=== PATIENT | male | born 1955 | race Caucasian/White ===

== ENCOUNTER → 2017-10-25 | Outpatient (CLI) | payer OTHER ==
[~2017-10-25] MED LIST: OMNIPAQUE 350 MG/ML, 100ML BOTTLE ONE
== END | disposition home or self-care (01) ==
LOC: CFH 08:32
PROVIDERS: ATTEND Internal Medicine
DX: K57.30 Diverticulosis of large intestine without perforation or abscess without bleeding (principal); N40.0 Benign prostatic hyperplasia without lower urinary tract symptoms; I70.0 Atherosclerosis of aorta
CPT/HCPCS: 74177; Q9967

== ENCOUNTER 2018-07-24 22:44 | Emergency (ER) | payer OTHER ==
[~2018-07-24] VITALS: Ht 172.7 cm; Wt 92.5 kg
[2018-07-24 23:29] LABS: BASOPHILS % (AUTO) 0 % (0-1); EOSINOPHILS # (AUTO) 0.13 x10^3/uL (0-0.4); EOSINOPHILS % (AUTO) 2 % (1-7); LYMPHOCYTES # (AUTO) 1.56 x10^3/uL (1-3.4); LYMPHOCYTES % (AUTO) 23 % (22-44); MD NO; MEAN CORPUSCULAR HEMOGLOBIN 32.3 pg (27.5-34.5); MEAN CORPUSCULAR HGB CONC 34.3 g/dL (33.2-36.2); MEAN CORPUSCULAR VOLUME 94.1 fL (81-97); MEAN PLATELET VOLUME 9.1 fL (7.4-10.4); MONOCYTES # (AUTO) 0.73 x10^3/uL (0.2-0.8); MONOCYTES % (AUTO) 11 % (2-9); NEUTROPHILS # (AUTO) 4.48 x10^3/uL (1.8-6.8); NEUTROPHILS % (AUTO) 65 % (42-75); PLATELET COUNT 229 x10^3/uL (130-400); RED BLOOD COUNT 4.92 x10^6/uL (4.38-5.82); RED CELL DISTRIBUTION WIDTH 13.8 % (9.4-14.8)
[2018-07-24] MEDS ORDERED: ONDANSETRON ODT 4 MG PO ONE (23:30)
[2018-07-24 23:41] LABS: ALANINE AMINOTRANSFERASE 32 U/L (12-78); ALBUMIN 3.7 g/dL (3.4-5.0); ANION GAP 9 mmol/L (5-15); CALCIUM 8.8 mg/dL (8.5-10.1); CHLORIDE 97 mmol/L (98-107); CREATININE 1.03 mg/dL (0.7-1.3)
[2018-07-24 23:46] LABS: ALKALINE PHOSPHATASE 61 U/L (45-117); BILIRUBIN,TOTAL 0.6 mg/dL (0.2-1.0); TOTAL PROTEIN 7.7 g/dL (6.4-8.2); TROPONIN I < 0.015 ng/mL (0.000-0.045)
[2018-07-25 00:05] LABS: MICROSCOPIC AUTO
[2018-07-25] MEDS ORDERED: OMNIPAQUE 350 MG/ML, 100ML BOTTLE ONE (00:06)
[2018-07-25 00:15] LABS: CULTURE INDICATED? NO
[2018-07-25] MEDS ORDERED: ONDANSETRON ODT 4 MG ONE (01:23)
[2018-07-25] MEDS ORDERED: ACETAMINOPHEN 500 MG TABLET ONE (01:53)
[2018-07-25] MEDS ORDERED: ONDANSETRON ODT 4 MG PO ONE (02:00)
[2018-07-25] MEDS ORDERED: ACETAMINOPHEN 500 MG TABLET PO ONE (02:00)
[2018-07-25 02:32] VITALS: BP 137/61
== END 2018-07-25 02:47 | disposition home or self-care (01) ==
LOC: ED 07-25 00:59
DX: R10.32 Left lower quadrant pain (principal); E78.00 Pure hypercholesterolemia, unspecified; I10 Essential (primary) hypertension; E10.8 Type 1 diabetes mellitus with unspecified complications
CPT/HCPCS: 36415; 74177; 80053; 81001; 83690; 84484; 85025; 93005; 99285; Q0162; Q9967

== ENCOUNTER → 2018-07-24 | Outpatient (CLI) | payer OTHER ==
[~2018-07-24] MED LIST changes: -OMNIPAQUE 350 MG/ML, 100ML BOTTLE ONE; +REGADENOSON 0.4 MG/5 ML SYRINGE ONE
== END | disposition home or self-care (01) ==
LOC: CFH 08:06
PROVIDERS: ATTEND Internal Medicine
DX: I49.3 Ventricular premature depolarization (principal)
CPT/HCPCS: 78452; 93017; A9502; J2785

== ENCOUNTER → 2018-08-05 | Outpatient (CLI) | payer OTHER ==
[~2018-08-05] MED LIST changes: +ASPI-496 PO; +CARV6.252 PO; +FEXO180T72 PO; +INSU100C SQ-INSULIN; +IRBE300T16 PO; +ISOS30TA8 PO; +MULT-717 PO; +OMEG-123 PO; +RANI150C PO; -REGADENOSON 0.4 MG/5 ML SYRINGE ONE; +ROSU10TA PO; +SIMV40TA3 PO
== END | disposition home or self-care (01) ==
LOC: CVU 13:58
PROVIDERS: ATTEND Internal Medicine Cardiovascular Disease
DX: I65.23 Occlusion and stenosis of bilateral carotid arteries (principal); I35.1 Nonrheumatic aortic (valve) insufficiency; I35.8 Other nonrheumatic aortic valve disorders; G45.9 Transient cerebral ischemic attack, unspecified; I10 Essential (primary) hypertension; E78.5 Hyperlipidemia, unspecified; E10.8 Type 1 diabetes mellitus with unspecified complications
CPT/HCPCS: 93306; 93880

== ENCOUNTER 2018-08-07 07:47 | Day surgery (SDC) | payer OTHER ==
[~2018-08-07] VITALS: Ht 172.7 cm; Wt 87.7 kg
[2018-08-07 08:25] VITALS: BP 168/71
[2018-08-07] MEDS ORDERED: RANI150C PO (08:41)
[2018-08-07] MEDS ORDERED: MULT-717 PO (08:41)
[2018-08-07] MEDS ORDERED: ROSU10TA PO (08:41)
[2018-08-07] MEDS ORDERED: OMEG-123 PO (08:41)
[2018-08-07] MEDS ORDERED: ASPI-496 PO (08:41)
[2018-08-07] MEDS ORDERED: IRBE300T16 PO (08:41)
[2018-08-07] MEDS ORDERED: FEXO180T72 PO (08:41)
[2018-08-07] MEDS ORDERED: SIMV40TA3 PO (08:41)
[2018-08-07] MEDS ORDERED: CARV6.252 PO (08:41)
[2018-08-07] MEDS ORDERED: INSU100C SQ-INSULIN (08:45)
[2018-08-07] MEDS ORDERED: LIDOCAINE 2%, 10ML ONE (09:47)
[2018-08-07] MEDS ORDERED: FENTANYL PF 100 MCG/2ML ONE (09:47)
[2018-08-07] MEDS ORDERED: MIDAZOLAM 1 MG/ML, 5ML ONE (09:47)
[2018-08-07] MEDS ORDERED: NITROGLYCERIN 5 MG/ML, 10ML ONE (09:48)
[2018-08-07] MEDS ORDERED: ISOS30TA8 PO (14:40)
== END 2018-08-07 15:15 | disposition home or self-care (01) ==
LOC: CACL 07:47
PROVIDERS: ATTEND Internal Medicine Cardiovascular Disease
DX: I25.10 Atherosclerotic heart disease of native coronary artery without angina pectoris (principal); I12.9 Hypertensive chronic kidney disease with stage 1 through stage 4 chronic kidney disease, or unspecified chronic kidney disease; E10.22 Type 1 diabetes mellitus with diabetic chronic kidney disease; N18.2 Chronic kidney disease, stage 2 (mild); E10.40 Type 1 diabetes mellitus with diabetic neuropathy, unspecified; G47.30 Sleep apnea, unspecified; E78.5 Hyperlipidemia, unspecified; Z98.890 Other specified postprocedural states; Z79.82 Long term (current) use of aspirin; Z79.4 Long term (current) use of insulin; Z86.73 Personal history of transient ischemic attack (TIA), and cerebral infarction without residual deficits
CPT/HCPCS: 82962; 93458; 99156; C1760; C1769; C1894; J2250; J3010; J3490; Q9967; J2001

== ENCOUNTER 2018-08-10 10:15 | Emergency (ER) | payer OTHER ==
[~2018-08-10] VITALS: Ht 172.7 cm; Wt 89.7 kg
[2018-08-10] MEDS ORDERED: SODIUM CHLORIDE 0.9% 1,000ML IVBOLUS ONE (11:00)
[2018-08-10 11:20] LABS: BASOPHILS # (AUTO) 0.03 x10^3/uL (0-0.1); BASOPHILS % (AUTO) 1 % (0-1); EOSINOPHILS # (AUTO) 0.08 x10^3/uL (0-0.4); EOSINOPHILS % (AUTO) 1 % (1-7); LYMPHOCYTES # (AUTO) 0.94 x10^3/uL (1-3.4); LYMPHOCYTES % (AUTO) 15 % (22-44); MD NO; MEAN CORPUSCULAR HEMOGLOBIN 31.8 pg (27.5-34.5); MEAN CORPUSCULAR HGB CONC 33.3 g/dL (33.2-36.2); MEAN CORPUSCULAR VOLUME 95.6 fL (81-97); MEAN PLATELET VOLUME 10.2 fL (7.4-10.4); MONOCYTES # (AUTO) 0.45 x10^3/uL (0.2-0.8); MONOCYTES % (AUTO) 7 % (2-9); NEUTROPHILS # (AUTO) 4.92 x10^3/uL (1.8-6.8); NEUTROPHILS % (AUTO) 77 % (42-75); PLATELET COUNT 213 x10^3/uL (130-400); RED BLOOD COUNT 4.65 x10^6/uL (4.38-5.82)
[2018-08-10 11:21] LABS: PH, VENOUS 7.391 pH (7.320-7.420)
[2018-08-10 11:22] LABS: FIO2 ROOM AIR %
[2018-08-10 11:32] LABS: ALANINE AMINOTRANSFERASE 27 U/L (12-78); ALBUMIN 3.8 g/dL (3.4-5.0); ANION GAP 8 mmol/L (5-15); CALCIUM 8.5 mg/dL (8.5-10.1); CHLORIDE 101 mmol/L (98-107)
[2018-08-10 11:35] LABS: ALKALINE PHOSPHATASE 53 U/L (45-117); BILIRUBIN,TOTAL 0.6 mg/dL (0.2-1.0); CREATININE 0.99 mg/dL (0.7-1.3); TOTAL PROTEIN 7.6 g/dL (6.4-8.2)
[2018-08-10 11:54] LABS: ACETONE, SERUM Negative (Negative)
[2018-08-10 11:56] VITALS: BP 147/55
[2018-08-10 12:31] LABS: HEMOGLOBIN A1C 7.2 % (4.2-6.3)
== END 2018-08-10 12:30 | disposition home or self-care (01) ==
LOC: ED 10:29
DX: E11.65 Type 2 diabetes mellitus with hyperglycemia (principal); I10 Essential (primary) hypertension; E78.00 Pure hypercholesterolemia, unspecified; Z90.49 Acquired absence of other specified parts of digestive tract
CPT/HCPCS: 36415; 80053; 82010; 82803; 82962; 83036; 83735; 84100; 85025; 96360; 99284; J7030

== ENCOUNTER → 2018-08-20 | Outpatient (CLI) | payer OTHER | END | disposition home or self-care (01) | LOC: RAD 09:45 | PROVIDERS: ATTEND Internal Medicine | DX: G45.9 Transient cerebral ischemic attack, unspecified (principal); R51 Headache; R42 Dizziness and giddiness | CPT/HCPCS: 70551 ==

== ENCOUNTER 2020-08-08 08:57 | Outpatient (CLI) | payer OTHER ==
[~2020-08-08 08:57] MED LIST changes: -IRBE300T16 PO; +IRBE300T8 PO; -ROSU10TA PO; +ROSU10TA2 PO; +SIMV40TA20 PO; -SIMV40TA3 PO
== END 2020-08-08 23:59 | disposition home or self-care (01) ==
LOC: CVU 08:57
PROVIDERS: ATTEND Internal Medicine Cardiovascular Disease
DX: I35.8 Other nonrheumatic aortic valve disorders (principal); I65.23 Occlusion and stenosis of bilateral carotid arteries; R93.1 Abnormal findings on diagnostic imaging of heart and coronary circulation; E78.00 Pure hypercholesterolemia, unspecified; E11.9 Type 2 diabetes mellitus without complications; I10 Essential (primary) hypertension
CPT/HCPCS: 93306; 93880

== ENCOUNTER → 2020-09-05 | Outpatient (CLI) | payer OTHER ==
[~2020-09-05] MED LIST changes: +REGADENOSON 0.4 MG/5 ML SYRINGE ONE
== END | disposition home or self-care (01) ==
LOC: CFH 08:02
PROVIDERS: ATTEND Internal Medicine Cardiovascular Disease
DX: R93.1 Abnormal findings on diagnostic imaging of heart and coronary circulation (principal); I10 Essential (primary) hypertension; R07.9 Chest pain, unspecified; G45.9 Transient cerebral ischemic attack, unspecified
CPT/HCPCS: 78452; 93017; A9502; J2785

== ENCOUNTER 2020-09-20 14:33 | Emergency (ER) | payer OTHER ==
[~2020-09-20] VITALS: Ht 172.7 cm; Wt 92.4 kg
[~2020-09-20 14:33] MED LIST changes: -REGADENOSON 0.4 MG/5 ML SYRINGE ONE
[2020-09-20 14:42] VITALS: BP 131/77
--- NOTE | 2020-09-20 17:22 | NUR ---
NO ANSWER IN LOBBY
--- NOTE | 2020-09-20 17:37 | NUR ---
no answer from lobby
--- NOTE | 2020-09-20 18:26 | NUR ---
NO ANSWER IN LOBBY
== END 2020-09-20 18:28 | disposition left against medical advice (07) ==
LOC: ED 18:20
DX: S09.90XA Unspecified injury of head, initial encounter (principal); R42 Dizziness and giddiness; R11.0 Nausea; W01.0XXA Fall on same level from slipping, tripping and stumbling without subsequent striking against object, initial encounter; Y93.89 Activity, other specified; Y92.89 Other specified places as the place of occurrence of the external cause; Y99.8 Other external cause status
CPT/HCPCS: 99281